=== PATIENT | male | born 1990 | race Caucasian/White ===

== ENCOUNTER 2016-07-22 08:44 | Emergency (ER) | payer OTHER ==
--- NOTE | 2016-07-22 09:28 | EDDOCDS ---
Physician Documentation [facility] Name: Ralph Heller Age: 26 yrs Sex: Male : 1990 Arrival Date: 07/22/2016 Time: 08:44 Bed Triage 1 Private MD: Disposition: 07/22/16 09:10 Discharged to Home/Self Care. Impression: Labyrinthitis, Acute serous otitis media, bilateral. - Condition is Stable. - Discharge Instructions: Serous Otitis Media, Labyrinthitis, [id number]. - Prescriptions for Medrol (Stewart) 4 mg Oral Tablets, Dose Pack - take 1 Pack by ORAL route as directed - follow package instructions; 1 packet. azelastine 137 mcg (0.1 %) Nasal Aerosol, [place] - spray 2 spray by INTRANASAL route 2 times per day each nostril; 1 bottle. - Medication Reconciliation, Local Pharmacy Hours form. - Follow up: Private Physician; When: 2 - 3 days; Reason: Further diagnostic work-up, Recheck today's complaints, Continuance of care. - Problem is new. - Symptoms are unchanged. Historical: - Allergies: no known allergies; - Home Meds: 1. none - PMHx: Hiatal Hernia; - PSHx: none; - Social history: Smoking status: Patient states was never smoker of tobacco. No barriers to communication noted, The patient speaks fluent Togolese, Speaks appropriately for age. - Family history: Not pertinent. - : The pt / caregiver states he / she is not on anticoagulants. Home medication list is obtained from the patient. - Exposure Risk Screening:: None identified. Vital Signs: 07/22 09:00 BP 125 / 76; Pulse 84; Resp 18; Temp 96(O); Pulse Ox 100% ; Weight 61.23 kg / 134.99 srm lbs (R); Height 6 ft. (182.88 cm); 09:00 Body Mass Index 18.31 (61.23 kg, 182.88 cm) srm Signatures: Carey Kelly, RN RN Dalton Garcia PA PA btw MTDD
--- NOTE | 2016-07-22 09:28 | EDDOCDS ---
Nurse's Notes [facility] Name: Ralph Heller Age: 26 yrs Sex: Male : 1990 Arrival Date: 07/22/2016 Time: 08:44 Bed Triage 1 Private MD: Diagnosis: Labyrinthitis;Acute serous otitis media, bilateral Presentation: 07/22 08:59 Presenting complaint: Patient states: dizzy, upset stomach and headache. no vision srm changes with headache. symptoms started this am. has not vomited. Adult Sepsis Screening: The patient does not have new or worsening altered mentation. Patient's respiratory rate is less than 22. Systolic blood pressure is greater than 100. Patient has a qSOFA score of 0- Negative Sepsis Screen. Suicide/Homicide risk assessment- the patient denies having any suicidal and/or homicidal ideations and does not present with any other emotional, behavioral or mental health complaints. Status: Patient is not a director social service or dependent. Transition of care: patient was not received from another setting of care. 08:59 Acuity: KILO Level 3 srm 08:59 Method Of Arrival: Walkin/Carried/Asstd srm Triage Assessment: 09:00 General: Appears in no apparent distress, Behavior is appropriate for age, cooperative. srm Pain: Denies pain. 09:26 HIV screening NA for this visit Offered previously. srm Historical: - Allergies: no known allergies; - Home Meds: 1. none - PMHx: Hiatal Hernia; - PSHx: none; - Social history: Smoking status: Patient states was never smoker of tobacco. No barriers to communication noted, The patient speaks fluent Cameroonian, Speaks appropriately for age. - Family history: Not pertinent. - : The pt / caregiver states he / she is not on anticoagulants. Home medication list is obtained from the patient. - Exposure Risk Screening:: None identified. Screenin:25 Screening information is obtained from the patient. Fall risk: No risks identified. srm Assistance ADL's: requires no assistance with activities of daily living. Abuse/DV Screen: The patient / caregiver reports he/she is: not in a situation that causes fear, pain or injury. Nutritional screening: No deficits noted. Advance Directives: There is no active DNR order. home support is adequate. Assessment: 09:25 General: Appears in no apparent distress, Behavior is appropriate for age, cooperative. srm Neurological: Level of Consciousness is awake, alert, Oriented to person, place, time, Moves all extremities. Full function Gait is steady, Speech is normal, Facial symmetry appears normal, Pupils are PERRLA. Cardiovascular: No deficits noted. Respiratory: No deficits noted. GI: Reports nausea. Vital Signs: 09:00 BP 125 / 76; Pulse 84; Resp 18; Temp 96(O); Pulse Ox 100% ; Weight 61.23 kg (R); Height [facility] 6 ft. (182.88 cm); 09:00 Body Mass Index 18.31 (61.23 kg, 182.88 cm) [facility] Vitals: 09:00 Log In Time: July 22, 2016 at 08:46. [facility] ED Course: 08:45 Patient visited by Mack Montalvo. [facility] 08:45 Patient moved to Waiting [facility] 09:00 Triage Initiated [facility] 09:02 Dalton Alatorre PA is PHCP. btw 09:02 Lauren Sams MD is Attending Physician. btw 09:02 Patient visited by Dalton Alatorre PA. btw 09:02 Patient moved to Triage 1 btw 09:25 The patient / caregiver is instructed regarding the plan of care and ED course. srm Accompanied by Family Member, Patient has correct armband on for positive identification. 09:25 No IV's were initiated during this patient's visit. No procedures done that require srm assistance. Order Results: There are currently no results for this order. Outcome: 09:10 Discharge ordered by Provider. btw 09:25 Discharge Assessment: Patient awake, alert and oriented x 3. No cognitive and/or srm functional deficits noted. Patient verbalized understanding of disposition instructions. patient administered narcotics - no. The following High Risk Discharge criteria are identified: None. Discharged to home ambulatory, with family. Condition: stable. Discharge instructions given to patient, Instructed on discharge instructions, follow up and referral plans. medication usage, Demonstrated understanding of instructions, medications, Pt was receptive of discharge instructions/ teaching. Prescriptions given X 2. No special radiology studies were completed. Property sent home with patient. 09:27 Patient left the ED. [facility] Signatures: Carey Kelly, RN RN [facility] Dalton Alatorre PA PA btw Mack Montalvo [facility] MTDD
--- NOTE | 2016-07-24 10:28 | EDDOCDS ---
Physician Documentation [facility] Name: Ralph Heller Age: 26 yrs Sex: Male : 1990 Arrival Date: 07/22/2016 Time: 08:44 Bed Triage 1 Private MD: Disposition: 07/22/16 09:10 Discharged to Home/Self Care. Impression: Labyrinthitis, Acute serous otitis media, bilateral. - Condition is Stable. - Discharge Instructions: Serous Otitis Media, Labyrinthitis, [id number]. - Prescriptions for Medrol (Stewart) 4 mg Oral Tablets, Dose Pack - take 1 Pack by ORAL route as directed - follow package instructions; 1 packet. azelastine 137 mcg (0.1 %) Nasal Aerosol, [place] - spray 2 spray by INTRANASAL route 2 times per day each nostril; 1 bottle. - Medication Reconciliation, Local Pharmacy Hours form. - Follow up: Private Physician; When: 2 - 3 days; Reason: Further diagnostic work-up, Recheck today's complaints, Continuance of care. - Problem is new. - Symptoms are unchanged. Historical: - Allergies: no known allergies; - Home Meds: 1. none - PMHx: Hiatal Hernia; - PSHx: none; - Social history: Smoking status: Patient states was never smoker of tobacco. No barriers to communication noted, The patient speaks fluent Emirati, Speaks appropriately for age. - Family history: Not pertinent. - : The pt / caregiver states he / she is not on anticoagulants. Home medication list is obtained from the patient. - Exposure Risk Screening:: None identified. Vital Signs: 07/22 09:00 BP 125 / 76; Pulse 84; Resp 18; Temp 96(O); Pulse Ox 100% ; Weight 61.23 kg / 134.99 srm lbs (R); Height 6 ft. (182.88 cm); 09:00 Body Mass Index 18.31 (61.23 kg, 182.88 cm) srm MDM: 09:28 [facility] Payment Agreement was scanned into [employer] and attached to record. jp5 09:28 Financial registration complete. jp5 22:05 T-Sheet-- Draft Copy was scanned into [employer] and attached to record. klr Signatures: Carey Kelly RN RN Dalton Garcia PA PA btw Price, Jennalee jp5 Lucina Thornton The chart was reviewed and I authenticate all verbal orders and agree with the evaluation and treatment provided.Attachments: : [facility] Payment Agreement jp5 22:05 T-Sheet-- Draft Copy klr Chart Complete MTDD
--- NOTE | 2016-07-24 10:28 | EDDOCDS ---
Physician Documentation [facility] Name: Ralph Heller Age: 26 yrs Sex: Male : 1990 Arrival Date: 07/22/2016 Time: 08:44 Bed Triage 1 Private MD: Disposition: 07/22/16 09:10 Discharged to Home/Self Care. Impression: Labyrinthitis, Acute serous otitis media, bilateral. - Condition is Stable. - Discharge Instructions: Serous Otitis Media, Labyrinthitis, [id number]. - Prescriptions for Medrol (Stewart) 4 mg Oral Tablets, Dose Pack - take 1 Pack by ORAL route as directed - follow package instructions; 1 packet. azelastine 137 mcg (0.1 %) Nasal Aerosol, [place] - spray 2 spray by INTRANASAL route 2 times per day each nostril; 1 bottle. - Medication Reconciliation, Local Pharmacy Hours form. - Follow up: Private Physician; When: 2 - 3 days; Reason: Further diagnostic work-up, Recheck today's complaints, Continuance of care. - Problem is new. - Symptoms are unchanged. Historical: - Allergies: no known allergies; - Home Meds: 1. none - PMHx: Hiatal Hernia; - PSHx: none; - Social history: Smoking status: Patient states was never smoker of tobacco. No barriers to communication noted, The patient speaks fluent Georgian, Speaks appropriately for age. - Family history: Not pertinent. - : The pt / caregiver states he / she is not on anticoagulants. Home medication list is obtained from the patient. - Exposure Risk Screening:: None identified. Vital Signs: 07/22 09:00 BP 125 / 76; Pulse 84; Resp 18; Temp 96(O); Pulse Ox 100% ; Weight 61.23 kg / 134.99 srm lbs (R); Height 6 ft. (182.88 cm); 09:00 Body Mass Index 18.31 (61.23 kg, 182.88 cm) srm MDM: 09:28 [facility] Payment Agreement was scanned into [employer] and attached to record. jp5 09:28 Financial registration complete. jp5 22:05 T-Sheet-- Draft Copy was scanned into [employer] and attached to record. klr Signatures: Carey Kelly RN RN Dalton Garcia PA PA btw Price, Jennalee jp5 Lucina Thornton The chart was reviewed and I authenticate all verbal orders and agree with the evaluation and treatment provided.Attachments: : [facility] Payment Agreement jp5 22:05 T-Sheet-- Draft Copy klr Chart Complete MTDD
--- NOTE | 2016-07-24 10:28 | EDDOCDS ---
Nurse's Notes [facility] Name: Ralph Heller Age: 26 yrs Sex: Male : 1990 Arrival Date: 07/22/2016 Time: 08:44 Bed Triage 1 Private MD: Diagnosis: Labyrinthitis;Acute serous otitis media, bilateral Presentation: 07/22 08:59 Presenting complaint: Patient states: dizzy, upset stomach and headache. no vision srm changes with headache. symptoms started this am. has not vomited. Adult Sepsis Screening: The patient does not have new or worsening altered mentation. Patient's respiratory rate is less than 22. Systolic blood pressure is greater than 100. Patient has a qSOFA score of 0- Negative Sepsis Screen. Suicide/Homicide risk assessment- the patient denies having any suicidal and/or homicidal ideations and does not present with any other emotional, behavioral or mental health complaints. Status: Patient is not a enrollment services dean or dependent. Transition of care: patient was not received from another setting of care. 08:59 Acuity: KILO Level 3 srm 08:59 Method Of Arrival: Walkin/Carried/Asstd srm Triage Assessment: 09:00 General: Appears in no apparent distress, Behavior is appropriate for age, cooperative. srm Pain: Denies pain. 09:26 HIV screening NA for this visit Offered previously. srm Historical: - Allergies: no known allergies; - Home Meds: 1. none - PMHx: Hiatal Hernia; - PSHx: none; - Social history: Smoking status: Patient states was never smoker of tobacco. No barriers to communication noted, The patient speaks fluent Trinidadian, Speaks appropriately for age. - Family history: Not pertinent. - : The pt / caregiver states he / she is not on anticoagulants. Home medication list is obtained from the patient. - Exposure Risk Screening:: None identified. Screenin:25 Screening information is obtained from the patient. Fall risk: No risks identified. srm Assistance ADL's: requires no assistance with activities of daily living. Abuse/DV Screen: The patient / caregiver reports he/she is: not in a situation that causes fear, pain or injury. Nutritional screening: No deficits noted. Advance Directives: There is no active DNR order. home support is adequate. Assessment: 09:25 General: Appears in no apparent distress, Behavior is appropriate for age, cooperative. srm Neurological: Level of Consciousness is awake, alert, Oriented to person, place, time, Moves all extremities. Full function Gait is steady, Speech is normal, Facial symmetry appears normal, Pupils are PERRLA. Cardiovascular: No deficits noted. Respiratory: No deficits noted. GI: Reports nausea. Vital Signs: 09:00 BP 125 / 76; Pulse 84; Resp 18; Temp 96(O); Pulse Ox 100% ; Weight 61.23 kg (R); Height [facility] 6 ft. (182.88 cm); 09:00 Body Mass Index 18.31 (61.23 kg, 182.88 cm) [facility] Vitals: 09:00 Log In Time: July 22, 2016 at 08:46. [facility] ED Course: 08:45 Patient visited by Mack Montalvo. [facility] 08:45 Patient moved to Waiting [facility] 09:00 Triage Initiated [facility] 09:02 Dalton Alatorre PA is PHCP. btw 09:02 Lauren Sams MD is Attending Physician. btw 09:02 Patient visited by Dalton Alatorre PA. btw 09:02 Patient moved to Triage 1 btw 09:25 The patient / caregiver is instructed regarding the plan of care and ED course. srm Accompanied by Family Member, Patient has correct armband on for positive identification. 09:25 No IV's were initiated during this patient's visit. No procedures done that require srm assistance. 09:28 [facility] Payment Agreement was scanned into [employer] and attached to record. [facility] 22:05 T-Sheet-- Draft Copy was scanned into [employer] and attached to record. klr Order Results: There are currently no results for this order. Outcome: 09:10 Discharge ordered by Provider. btw 09:25 Discharge Assessment: Patient awake, alert and oriented x 3. No cognitive and/or srm functional deficits noted. Patient verbalized understanding of disposition instructions. patient administered narcotics - no. The following High Risk Discharge criteria are identified: None. Discharged to home ambulatory, with family. Condition: stable. Discharge instructions given to patient, Instructed on discharge instructions, follow up and referral plans. medication usage, Demonstrated understanding of instructions, medications, Pt was receptive of discharge instructions/ teaching. Prescriptions given X 2. No special radiology studies were completed. Property sent home with patient. 09:27 Patient left the ED. [facility] Signatures: Carey Kelly, RN RN srm Dalton Alatorre PA PA btw Price, Jennalee jp5 Redder, Kathie klr Chart Complete MTDD
== END 2016-07-22 09:27 | disposition home or self-care (01) ==
LOC: M ED 08:44
DX: H65.03 Acute serous otitis media, bilateral (principal); H83.03 Labyrinthitis, bilateral

== ENCOUNTER → 2018-06-13 | Outpatient (CLI) | payer OTHER ==
--- NOTE | 2018-06-13 10:26 | REP ---
MRI right shoulder without contrast: History: Synovitis, tendonitis right shoulder. No known injury. Pain and limited range of motion. No comparison radiographs. Technique: Axial, oblique coronal and oblique sagittal imaging planes are utilized. T1 and T2-weighted scans are included with and without fat saturation. MRI findings: Glenohumeral and acromioclavicular joints are normally aligned. Cortical and medullary bone signal intensity are normal. There is mild hypertrophy at the superior aspect of the AC joint. There is no evidence of glenohumeral effusion. There is a small subacromial bursal effusion. There is no evidence of labral cartilage disruption. There is mild increased signal intensity in the distal supraspinatus tendon consistent with tendonitis tendinosis change. There are also mild similar changes in the subscapularis tendon. Infraspinatus and biceps tendons appear intact. No extrathoracic cyst or mass is seen. Impression: Mild tendinosis changes in the supraspinatus and subscapularis tendons. No full-thickness or focal cuff tear. Otherwise negative. Electronically Signed by Deejay Dumas MD 06/13/2018 10:28 A
== END ==
LOC: M RAD 08:48
PROVIDERS: ATTEND Orthopaedic Surgery Sports Medicine
DX: M65.811 Other synovitis and tenosynovitis, right shoulder (principal)